=== PATIENT | female | born 1970 | race Caucasian/White ===

== ENCOUNTER 2017-10-08 21:33 | Outpatient (CLI) | END 2017-10-08 21:34 | disposition short-term general hospital (02) | LOC: AMBL 21:33 | PROVIDERS: ATTEND Emergency Medicine | DX: R55 Syncope and collapse (principal); R53.83 Other fatigue; R07.9 Chest pain, unspecified; M54.6 Pain in thoracic spine; R00.0 Tachycardia, unspecified; R11.0 Nausea; F41.9 Anxiety disorder, unspecified ==